=== PATIENT | female | born 1980 | race Hispanic/Latino ===

== ENCOUNTER 2019-07-02 14:20 | Observation (INO) | payer BC, MEDICAID ==
[~2019-07-02] VITALS: Ht 167.6 cm; Wt 81.2 kg
[2019-07-02 15:08] LABS: APPEARANCE,URINE Turbid (CLEAR); BILIRUBIN,URINE Negative (NEGATIVE); COLOR,URINE Yellow (YELLOW); GLUCOSE, URINE (UA) TRACE mg/dL (NEGATIVE); KETONES,URINE Trace mg/dL (NEGATIVE); LEUKOCYTE ESTERASE ,URINE Large (NEGATIVE); NITRATE,URINE Negative (NEGATIVE); OCCULT BLOOD,URINE Trace (NEGATIVE); PH,URINE 6.5 (5.0-8.0); PROTEIN,URINE POS 1+ mg/dL (NEGATIVE)
[2019-07-02 15:17] LABS: BACTERIA,URINE Many /HPF (None Seen); MUCUS,URINE Few LPF (None Seen)
[2019-07-02] MEDS ORDERED: LACTATED RINGERS 1000ML IV SCH (16:00)
[2019-07-10] MEDS ORDERED: PREN1TAB80 PO (00:16)
== END 2019-07-02 17:20 | disposition home or self-care (01) ==
LOC: LDH 14:20
PROVIDERS: ADMIT Obstetrics & Gynecology; ATTEND Obstetrics & Gynecology
DX: O26.893 Other specified pregnancy related conditions, third trimester (principal); R42 Dizziness and giddiness; Z3A.37 37 weeks gestation of pregnancy
CPT/HCPCS: 81001; G0378 ×3; J7120; 96360

== ENCOUNTER → 2021-06-14 | Outpatient (CLI) | payer OTHER, MEDICAID ==
[~2021-06-14] MED LIST: PREN1TAB80 PO
== END | disposition home or self-care (01) ==
LOC: RAH 13:37
PROVIDERS: ATTEND Internal Medicine
DX: Z12.31 Encounter for screening mammogram for malignant neoplasm of breast (principal)
CPT/HCPCS: 77067

== ENCOUNTER → 2022-09-04 | Outpatient (CLI) | payer OTHER, MEDICAID | END | disposition home or self-care (01) | LOC: RAH 08-29 13:45 | PROVIDERS: ATTEND Internal Medicine | DX: Z12.31 Encounter for screening mammogram for malignant neoplasm of breast (principal) | CPT/HCPCS: 77063; 77067 ==

== ENCOUNTER → 2023-09-10 | Outpatient (CLI) | payer OTHER | END | disposition home or self-care (01) | LOC: RAH 08:38 | PROVIDERS: ATTEND Internal Medicine | DX: Z12.31 Encounter for screening mammogram for malignant neoplasm of breast (principal); R92.333 Mammographic heterogeneous density, bilateral breasts | CPT/HCPCS: 77067 ==

== ENCOUNTER → 2024-10-19 | Outpatient (CLI) | payer OTHER ==
--- NOTE | 2024-10-19 16:06 | HMCIMG ---
US BREAST BILATERAL REASON: inconclusive mammogram. COMPARISON: Mammogram from 10/01/2024 TECHNIQUE: Bilateral breast ultrasound study was performed. FINDINGS: There is probably nodule at 12:00 of right breast measuring 8 x 4 x 7 mm in the related to fibroadenoma. There is right breast cyst at 12:00 measuring 15 x 4 x 14 mm. There is left breast cysts at 3:00 measuring 6 x 4 x 6 mm. There may be fatty lobule versus lipoma in the right breast measuring 3.9 x 1.7 x 5.2 cm. Multiple right axillary lymph nodes are seen with the largest measuring 13 mm. IMPRESSION: Bilateral breast cysts. There is possible fibroadenoma at 12:00 of right breast measuring 8 mm. Six-month follow-up study is recommended. CATEGORY 2: BENIGN FINDINGS Recommend monthly self breast exam as well as annual clinical examination.
== END | disposition home or self-care (01) ==
LOC: RAH 14:38
PROVIDERS: ATTEND Internal Medicine
DX: N60.01 Solitary cyst of right breast (principal); N60.02 Solitary cyst of left breast; R92.2 Inconclusive mammogram; R92.8 Other abnormal and inconclusive findings on diagnostic imaging of breast